=== PATIENT | female | born 1980 | race African-American/Black ===

== ENCOUNTER → 2021-07-07 14:30 | Outpatient (CLI) | payer OTHER, SELFPAY ==
--- NOTE | ~2021-07-07 | US_ITS ---
EXAMINATION: US thyroid DATE: 07/07/2021 14:44 INDICATION: Thyroid nodule TECHNIQUE: Multiple ultrasound images of the thyroid were obtained. COMPARISON: None. FINDINGS: The right thyroid lobe measures 6.4 x 2.6 x 2.5 cm. The left thyroid lobe measures 3.7 x 1.5 x 1.5 c m. 4.1 cm solid heterogeneous isoechoic nodule with smooth margins and without echogenic foci (TI-RA DS 3, mildly suspicious , FNA if >=2.5 cm, annual followup is >=1.5 cm). There is a second similar-ap pearing 3.5 cm nodule at the isthmus but which also appears to include some coarse shadowing calcific ation (TI-RADS 4, moderately suspicious , FNA if >=1.5 cm, annual followup is >=1 cm). There is rochelle l echotexture, echogenicity and vascular flow throughout the thyroid gland. IMPRESSION: 1. 4.1 cm TI RADS 3 right thyroid nodule and 3.5 cm TI RADS 4 thyroid nodule at the isthmus. Would re commend ultrasound-guided biopsy of both nodules. Reviewed, dictated and finalized at [facility]. POURER IMPRESSION: 1. 4.1 cm TI RADS 3 right thyroid nodule and 3.5 cm TI RADS 4 thyroid nodule at the isthmus. Would recommend ultrasound-guided biopsy of both nodules.
== END ==
PROVIDERS: PCP Internal Medicine; Visit Provider Internal Medicine
DX: E04.1 Nontoxic single thyroid nodule (principal)
CPT/HCPCS: 76536

== ENCOUNTER 2022-04-30 11:22 | Outpatient (CLI) | payer OTHER, SELFPAY ==
--- NOTE | ~2022-04-30 | US_ITS ---
EXAMINATION: US thyroid DATE: 04/30/2022 11:56 INDICATION: Thyroid nodule TECHNIQUE: Multiple ultrasound images of the thyroid were obtained. COMPARISON: 07/07/2021 FINDINGS: The right thyroid lobe measures 5.9 x 2.8 x 1.4 cm. The left thyroid lobe measures 4.5 x 1.3 x 1.6 c m. No significant interval change in a 3.8 cm wider than tall predominately solid isoechoic right th yroid nodule with smooth margins and without internal echogenic foci (TI-RADS 3, mildly suspicious , FNA if >=2.5 cm, annual followup is >=1.5 cm). Also without significant interval change is a 3.2 cm w ider than tall predominantly solid isoechoic nodule with coarse shadowing calcifications (TI-RADS 4, moderately suspicious , FNA if >=1.5 cm, annual followup is >=1 cm) at the left side of the thyroid i sthmus. Unchanged likely benign 5 mm cystic TI-RADS 1 nodule at the inferior left thyroid. IMPRESSION: 1. No significant interval change in a 3.8 cm TI RADS 3 right thyroid nodule or of a 3.2 cm TI RADS 4 nodule at the isthmus, both of which meet criteria for ultrasound-guided biopsy. Reviewed, dictated and finalized at location [facility]. IMPRESSION: 1. No significant interval change in a 3.8 cm TI RADS 3 right thyroid nodule or of a 3.2 cm TI RADS 4 nodule at the isthmus, both of which meet criteria for u ltrasound-guided biopsy.
== END 2022-04-30 11:23 ==
PROVIDERS: PCP Internal Medicine
DX: E04.1 Nontoxic single thyroid nodule (principal)
CPT/HCPCS: 76536

== ENCOUNTER → 2023-05-25 10:46 | Outpatient (CLI) | payer OTHER, SELFPAY ==
--- NOTE | ~2023-05-25 | US_ITS ---
EXAMINATION: US thyroid DATE: 05/25/2023 11:08 INDICATION: Nontoxic single thyroid nodule. TECHNIQUE: Multiple ultrasound images of the thyroid were obtained. COMPARISON: Thyroid ultrasound 04/30/2022, 07/07/21 FINDINGS: The right thyroid lobe measures 7.4 x 2.9 x 2.7 cm. The left thyroid lobe measures 4.5 x 1.3 x 1.3 c m. In the right thyroid lobe, there is a 3.7 cm predominantly solid, isoechoic, wider than tall nodu le with ill-defined margin without echogenic foci (TI-RADS TR4), stable from 07/07/21. In the right t hyroid lobe, there is a 9 mm mixed cystic and solid, isoechoic, wider than tall nodule with lobulated margin without echogenic foci (TR4), likely not clinically significant. In the right thyroid lobe, t here is an 8 mm solid, hypoechoic, wider than tall nodule with lobulated margin without echogenic foc i (TR4), likely not clinically significant. In the right thyroid isthmus, there is a 2.4 cm predomina ntly solid, isoechoic, wider than tall nodule with ill-defined margin without echogenic foci (TR3), l ikely stable from 07/07/21. In the thyroid isthmus, there is a 3.5 cm predominantly solid, isoechoic, wider than tall nodule with ill-defined margin and macrocalcifications (TR4), stable from 07/07/21. IMPRESSION: 1. Multinodular goiter, stable from 07/07/2021. By report, the patient has benign outside biopsy resu lts. Correlate with older outside imaging. Reviewed, dictated and finalized at location E. UNDERWRITER IMPRESSION: 1. Multinodular goiter, stable from 07/07/2021. By report, the patient has kathy gn outside biopsy results. Correlate with older outside imaging.
== END ==
PROVIDERS: Visit Provider Surgery
DX: E04.2 Nontoxic multinodular goiter (principal)
CPT/HCPCS: 76536

== ENCOUNTER 2024-05-30 10:46 | Outpatient (CLI) | payer OTHER, SELFPAY ==
--- NOTE | ~2024-05-30 | US_ITS ---
EXAMINATION: US thyroid DATE: 05/30/2024 11:13 INDICATION: Thyroid nodule. TECHNIQUE: Multiple ultrasound images of the thyroid were obtained. COMPARISON: Ultrasound 05/25/2023, 07/07/2021 FINDINGS: The right thyroid lobe measures 6.6 x 2.9 x 2.6 cm. The left thyroid lobe measures 4.7 x 1.6 x 1.7 c m. In the right thyroid lobe, there is a 3.2 cm predominantly solid, hypoechoic, wider than tall nod ule with ill-defined margin without echogenic foci (TI-RADS TR4). In the thyroid isthmus, there is a 2.8 cm mixed cystic and solid, hypoechoic, wider than tall nodule with smooth margin and macrocalcifi cations (TR4). IMPRESSION: 1. Multinodular goiter, stable from 07/07/2021 considering differences in technique. By report, the p atient has benign outside biopsy results. Correlate with older outside imaging. Reviewed, dictated and finalized at location A. ESS TREATER IMPRESSION: 1. Multinodular goiter, stable from 07/07/2021 considering differences in techn ique. By report, the patient has benign outside biopsy results. Correlate with older outside imaging.
== END 2024-05-30 10:47 | disposition home or self-care (01) ==
LOC: MICIMG 10:47
DX: E04.2 Nontoxic multinodular goiter (principal)
CPT/HCPCS: 76536